=== PATIENT | male | born 1985 | race Caucasian/White ===

== ENCOUNTER 2022-10-01 22:31 | Emergency (ER) | payer OTHER ==
[~2022-10-01] VITALS: Ht 182.9 cm; Wt 113.4 kg
[~2022-10-01 22:31] MED LIST: AMOX500 PO; CRUTCH4 USE; FAMO20 PO; HYDACE5 PO; IBUP800 PO; OXYACE5T PO; PANT40 PO; PENVK250 PO; PENVK500 PO; RXOXYACE PO; SULTRIDS PO; TRAM50 PO
[2022-10-01] MEDS ORDERED: METPRE4DP PO (22:43)
[2022-10-01] MEDS ORDERED: Cetirizine HCl10 MG PO (22:43)
[2022-10-01] MEDS ORDERED: EPINEPHRIN0.3 MG/0.1 IJ (22:43)
[2022-10-01] MEDS ORDERED: NYSTATIN100000 U13 SS (22:58)
== END 2022-10-01 23:13 | disposition home or self-care (01) ==
LOC: ER 22:31
DX: B37.0 Candidal stomatitis (principal); B37.81 Candidal esophagitis; F17.200 Nicotine dependence, unspecified, uncomplicated; Z88.5 Allergy status to narcotic agent; Z79.899 Other long term (current) drug therapy
CPT/HCPCS: 82947; 99283; A9270